=== PATIENT | male | born 1950 | race Caucasian/White ===

== ENCOUNTER 2021-09-08 06:59 | Observation (INO) | payer MEDICARE, BC ==
[~2021-09-08] VITALS: Ht 193 cm; Wt 97.7 kg
[~2021-09-08 06:59] MED LIST: SOTA80TA73 PO
[2021-09-08] MEDS ORDERED: ketorolac trometh. 30mg/ml inj. IV ONE (09:25)
[2021-09-08] MEDS ORDERED: morphine 4 MG/ML inj SYRINge IV ONE ×2 (09:25→10:45)
[2021-09-08] MEDS ORDERED: ketorolac trometh inj. 60 MG/2 ML VIAL IM ONE (09:50)
[2021-09-08] MEDS ORDERED: OXYC-145 PO ×3 (11:20→11:24)
[2021-09-08] MEDS ORDERED: morphine 10mg/ml inj. IV ONE (11:40)
[2021-09-08] MEDS ORDERED: ketorolac tromethamine 15mg/ml inj. IV ONE (11:40)
--- NOTE | 2021-09-08 12:43 | NUR ---
pt states as long as he is laying on his side his pain he can talrate the pain as soon as he move the pain ski rockets and can not take the pain
[2021-09-08] MEDS ORDERED: dexamethasone sod phosphate 10mg/ml inj IV STA (12:54)
[2021-09-08 15:19] LABS: BASOPHILS % (AUTO) 0.5 % (0-1); EOSINOPHILS # (AUTO) 0.1 X10'3 (0-0.9); EOSINOPHILS % (AUTO) 1.8 % (0-6); HEMATOCRIT 40.5 % (42.0-52.0); HEMOGLOBIN 13.7 g/dl (14.0-17.9); LYMPHOCYTES # (AUTO) 0.5 X10'3 (1.1-4.8); LYMPHOCYTES % (AUTO) 6.7 % (21-51); MEAN CORPUSCULAR HEMOGLOBIN 30.6 PG (27.0-31.0); MEAN CORPUSCULAR VOLUME 90.2 FL (78-98); MEAN PLATELET VOLUME 6.6 FL (7.4-10.4); MONOCYTES # (AUTO) 0.2 X10'3 (0-0.9); MONOCYTES % (AUTO) 3.3 % (2-12); NEUTROPHILS # (AUTO) 6.3 X10'3 (1.8-7.7); NEUTROPHILS % (AUTO) 87.7 % (42-75); PLATELET COUNT 182 X10'3 (140-440); RED BLOOD COUNT 4.49 X10'6 (4.70-6.10); RED CELL DISTRIBUTION WIDTH 13.5 % (11.5-14.5); WHITE BLOOD COUNT 7.2 X10'3 (4.5-11.0)
[2021-09-08] MEDS ORDERED: diltiazem 5mg/ml 5ml inj. IV ONE (15:35)
[2021-09-08] MEDS ORDERED: normal saline 1000ml 1,000 ML IV ONE (15:35)
[2021-09-08] MEDS ORDERED: fentaNYL/PF 50MCG/1 ML 2ML syringe IV ONE (15:35)
[2021-09-08 15:43] LABS: ALANINE AMINOTRANSFERASE 27 U/L (12-78); ALBUMIN 3.4 G/DL (3.4-5.0); ALBUMIN/GLOBULIN RATIO 1.5 (1.1-1.5); ALKALINE PHOSPHATASE 56 IU/L (46-116); ANION GAP 4 (8-16); ASPARTATE AMINO TRANSFERASE 18 U/L (10-37); BILIRUBIN,TOTAL 0.7 MG/DL (0.1-1.0); BLOOD UREA NITROGEN 8 MG/DL (7-18); BUN/CREATININE RATIO 6.5 (5.4-32.0); CALCIUM 8.3 MG/DL (8.5-10.1); CHLORIDE 112 MMOL/L (99-107); CREATININE 1.23 MG/DL (0.60-1.10); GLUCOSE 111 MG/DL (70-104); POTASSIUM 4.4 MMOL/L (3.5-5.1); SODIUM 147 MMOL/L (135-145); TOTAL CARBON DIOXIDE 30.6 MMOL/L (24-32); TOTAL PROTEIN 5.6 G/DL (6.4-8.2); eGFR 58 ML/MIN
[2021-09-08] MEDS ORDERED: magnesium hydroxide 30ml (MOM) UD suspension PO PRN (16:55)
[2021-09-08] MEDS: sodium chloride 0.45% 1,000 ML IV SCH (16:55)
[2021-09-08] MEDS ORDERED: acetaminophen 325mg tablet PO PRN (16:55)
[2021-09-08] MEDS ORDERED: mag hydrox/Alum hydrox/simeth 30ml oral suspension PO PRN (16:55)
[2021-09-08] MEDS ORDERED: ondansetron/PF 4mg/2ml inj IV PRN (16:55)
[2021-09-08] MEDS ORDERED: ATOR10TA70 PO (17:56)
[2021-09-08] MEDS ORDERED: LEVO100T9 PO (17:56)
[2021-09-08] MEDS: HYDROmorphone inj. 0.5 MG/0.5 ML DISP.SYRIN IV PRN ×2 (18:56→23:08)
[2021-09-08] MEDS: docusate sod 100mg capsule PO SCH (20:00)
[2021-09-08 20:35] LABS: CLARITY,URINE CLEAR (Clear); COLOR,URINE YELLOW (Yellow); GLUCOSE, URINE 500 mg/dl (Neg); KETONES,URINE NEGATIVE (Neg); LEUKOCYTE ESTERASE ,URINE NEGATIVE (Neg); NITRITES, URINE NEGATIVE (Neg); OCCULT BLOOD,URINE NEGATIVE (Neg); PROTEIN,URINE NEGATIVE (Neg)
[2021-09-08 20:37] LABS: UA COLLECTION TYPE URINAL
[2021-09-08] MEDS: oxyCODONE/APAP 10/325mg tablet PO PRN (21:11)
--- NOTE | 2021-09-08 21:50 | NUR ---
Received report from the Analysis TesterMac Augustin. Patient to follow shortly.
--- NOTE | 2021-09-08 22:00 | NUR ---
Patient arrived to floor from ER via gurney. Slide board used to transfer over to bed. 2 RN skin check completed and VS taken. Patient positioned with pillows for comfort. In no apparent distress at this time.
[2021-09-08 22:10] VITALS: BP 127/62
[2021-09-09] MEDS: oxyCODONE/APAP 10/325mg tablet PO PRN (01:50)
--- NOTE | 2021-09-09 02:07 | NUR ---
promotional table spacer promotional table spacer Page Sent promotional table spacer PAGER ID: [phone] MESSAGE: Miguel Brock [phone]. please can we make the restraining order. Percocet q4hr instead of q6? Also need the ok for the restraining order on 11c. Please call Kylah [phone] ([phone] character message out of a maximum [phone]) Close [X] Send Another Page Thank you for visiting [facility] promotional table spacer promotional table spacer
[2021-09-09] MEDS ORDERED: oxyCODONE/APAP 10/325mg tablet PO PRN (02:20)
--- NOTE | 2021-09-09 02:22 | NUR ---
Pain medication was given before the changed order from q6hrs to 4hrs was entered into computer. MD morales.
[2021-09-09] MEDS: sodium chloride 0.45% 1,000 ML IV SCH ×2 (02:58→12:55)
[2021-09-09] MEDS: HYDROmorphone inj. 0.5 MG/0.5 ML DISP.SYRIN IV PRN ×3 (04:54→14:38)
[2021-09-09 06:09] LABS: BASOPHILS % (AUTO) 0.1 % (0-1); EOSINOPHILS % (AUTO) 0 % (0-6); HEMATOCRIT 40.1 % (42.0-52.0); HEMOGLOBIN 13.5 g/dl (14.0-17.9); LYMPHOCYTES # (AUTO) 0.4 X10'3 (1.1-4.8); LYMPHOCYTES % (AUTO) 2.7 % (21-51); MEAN CORPUSCULAR HEMOGLOBIN 30.1 PG (27.0-31.0); MEAN CORPUSCULAR HGB CONC 33.5 g/dL (33.0-36.5); MEAN CORPUSCULAR VOLUME 89.6 FL (78-98); MEAN PLATELET VOLUME 7.2 FL (7.4-10.4); MONOCYTES # (AUTO) 0.5 X10'3 (0-0.9); MONOCYTES % (AUTO) 3.1 % (2-12); NEUTROPHILS # (AUTO) 14.9 X10'3 (1.8-7.7); NEUTROPHILS % (AUTO) 94.1 % (42-75); PLATELET COUNT 177 X10'3 (140-440); RED BLOOD COUNT 4.47 X10'6 (4.70-6.10); RED CELL DISTRIBUTION WIDTH 13.6 % (11.5-14.5); WHITE BLOOD COUNT 15.9 X10'3 (4.5-11.0)
[2021-09-09 06:13] LABS: ALBUMIN 3.1 G/DL (3.4-5.0); ANION GAP 8 (8-16); BLOOD UREA NITROGEN 12 MG/DL (7-18); CALCIUM 8.5 MG/DL (8.5-10.1); CHLORIDE 109 MMOL/L (99-107); CREATININE 1.09 MG/DL (0.60-1.10); GLUCOSE 134 MG/DL (70-104); POTASSIUM 4.1 MMOL/L (3.5-5.1); SODIUM 142 MMOL/L (135-145); TOTAL CARBON DIOXIDE 24.8 MMOL/L (24-32); eGFR 67 ML/MIN
[2021-09-09] MEDS: tizanidine 4mg tablet PO PRN ×2 (06:13→11:51)
[2021-09-09 06:27] VITALS: BP 134/47
--- NOTE | 2021-09-09 06:27 | NUR ---
Received report from ROSALIO Montero
--- NOTE | 2021-09-09 06:57 | NUR ---
Patient report given to Shana SANTAMARIA.
--- NOTE | 2021-09-09 07:22 | NUR ---
PAGER ID: [phone] MESSAGE: Ortho/Neuro, can you please address med rec of [id number], and [id number], thank you!!! Shana [phone]
--- NOTE | 2021-09-09 07:50 | NUR ---
Patients called asking who the DrAdrián was today. I stated "Dr. Winters", she asked what time he would be in and I stated "between eight and noon" then she stated "it has been over 24hrs and nothing has been done, and she would like him legally discharged so she can take him to a pain specialist." I took her name and number to relay information to his nurse Shana. , Ashley [phone]
--- NOTE | 2021-09-09 07:58 | NUR ---
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 CT report reccomends MRI if symptoms persist.. do you want an MRI ordered??? Shana [phone]
[2021-09-09] MEDS: docusate sod 100mg capsule PO SCH (08:00)
--- NOTE | 2021-09-09 09:30 | NUR ---
Provided patient with hot packs for back
[2021-09-09 09:57] VITALS: BP 104/58
[2021-09-09] MEDS ORDERED: ketorolac tromethamine 15mg/ml inj. IV ONE (10:25)
--- NOTE | 2021-09-09 10:36 | NUR ---
patient to MRI
--- NOTE | 2021-09-09 12:13 | NUR ---
PAGER ID: [phone] MESSAGE: BiankaBandar Silvadiamondnory MRI report is back. shows disc buldge with severe spinal stenosis and severe compression and impingement bilaterally to l5/l4 nerve roots.. do you still want him to work with PT??? Shana [phone]
[2021-09-09] MEDS ORDERED: TIZA-205 PO (12:51)
[2021-09-09] MEDS ORDERED: IBUP-1986 PO (12:51)
--- NOTE | 2021-09-09 13:16 | NUR ---
Sent page to case management for walker as reccomended for home by PT
--- NOTE | 2021-09-09 14:56 | NUR ---
Patient discharged to home to private vehicle via wheelchair. All medications sent to pharmacy prior to discharge, patient received pain medications prior to discharge for ride in the car. Patient was provided with a walker for home and all discharge instructions were given to both patient and . 20 gauge iv removed from right ac cannula intact no complications.
[2021-09-10] MEDS ORDERED: atorvastatin 10mg tablet PO SCH (08:00)
[2021-09-10] MEDS ORDERED: levoTHYROXINE 100mcg tablet PO SCH (08:00)
--- NOTE | 2021-09-16 14:58 | NUR ---
Case Management DC follow up:Telephoned , however no answer, left message to call back ; extension [phone].
== END 2021-09-09 16:28 | disposition home or self-care (01) ==
LOC: ER 07:00 → ED HOLD 16:57 → ORTHO 4S 22:00
PROVIDERS: ADMIT Family Medicine; ATTEND Family Medicine
DX: M48.061 Spinal stenosis, lumbar region without neurogenic claudication (principal); M54.16 Radiculopathy, lumbar region; S39.012A Strain of muscle, fascia and tendon of lower back, initial encounter; N17.9 Acute kidney failure, unspecified; E86.0 Dehydration; I48.91 Unspecified atrial fibrillation; I48.92 Unspecified atrial flutter; E78.5 Hyperlipidemia, unspecified; X58.XXXA Exposure to other specified factors, initial encounter; Y93.89 Activity, other specified; Y92.89 Other specified places as the place of occurrence of the external cause; Z79.899 Other long term (current) drug therapy
CPT/HCPCS: 36415; 71045; 72131; 72148; 80048; 80053; 81003; 85025; 87081; 93005; 96361; 96372; 96374; 96375; 96376; 97116; 97161; 97530; 99285; G0378; J1100; J1170; J1885; J2270; J2274; J3010; J3490

== ENCOUNTER 2023-08-04 08:33 | Outpatient (CLI) | payer MEDICARE, OTHER ==
[2023-08-03 13:35] LABS: ALBUMIN 3.6 G/DL (3.4-5.0); ANION GAP 9 (8-16); BLOOD UREA NITROGEN 14 MG/DL (7-18); CALCIUM 8.9 MG/DL (8.5-10.1); CHLORIDE 108 MMOL/L (99-107); CREATININE 1.56 MG/DL (0.60-1.10); GLUCOSE 88 MG/DL (70-104); POTASSIUM 4.4 MMOL/L (3.5-5.1); SODIUM 142 MMOL/L (135-145); TOTAL CARBON DIOXIDE 24.6 MMOL/L (24-32); eGFR 44 ML/MIN
[~2023-08-04 08:33] MED LIST changes: +AMI200T PO; +ASPI81TA53 PO; +ATOR40TA72 PO; +GLUC100017 PO; +HYDR-3972 PO; +LANS30CA56 PO; +LEVO100T9 PO; +LOP12.5T PO; +LORA10TA7 PO; +NALT1TAB PO; -SOTA80TA73 PO
[2023-08-04] MEDS ORDERED: iohexol 350MG/ML 100ml bottle IV ONE (08:45)
== END 2023-08-04 23:59 | disposition home or self-care (01) ==
LOC: RAD 08:33
PROVIDERS: ATTEND Internal Medicine Interventional Cardiology
DX: I25.10 Atherosclerotic heart disease of native coronary artery without angina pectoris (principal); I51.7 Cardiomegaly; I48.0 Paroxysmal atrial fibrillation; I79.0 Aneurysm of aorta in diseases classified elsewhere; J98.09 Other diseases of bronchus, not elsewhere classified; Z95.1 Presence of aortocoronary bypass graft
CPT/HCPCS: 36415; 75572; 80048; J3490; Q9967